=== PATIENT | male | born 1945 | race Asian ===

== ENCOUNTER 2022-10-18 07:55 | Emergency (ER) | payer OTHER ==
[~2022-10-18] VITALS: Ht 170.2 cm; Wt 80.5 kg
[2022-10-18 08:24] VITALS: BP 149/70
[2022-10-18] MEDS ORDERED: CIP03OS RIGHTEYE (08:54)
== END 2022-10-18 09:07 | disposition home or self-care (01) ==
LOC: ER 07:55
DX: S05.01XA Injury of conjunctiva and corneal abrasion without foreign body, right eye, initial encounter (principal); Z79.899 Other long term (current) drug therapy; X58.XXXA Exposure to other specified factors, initial encounter; Y93.89 Activity, other specified; Y92.89 Other specified places as the place of occurrence of the external cause; Y99.8 Other external cause status

== ENCOUNTER 2024-06-19 04:44 | Emergency (ER) | payer MEDICARE, OTHER ==
[~2024-06-19] VITALS: Ht 170.2 cm; Wt 81.5 kg
[~2024-06-19 04:44] MED LIST: CIP03OS RIGHTEYE
[2024-06-19] MEDS: DexAMETHasone SOD PHOS 10MG/1ML VIAL INJ IM ONE (05:06)
[2024-06-19] MEDS: diphenhdrAMINE HCL 50 MG/1 ML VL IM ONE (05:07)
[2024-06-19 06:25] VITALS: BP 139/79; PULSE 62; RESP 16; TEMP 98; O2SAT 97
== END 2024-06-19 05:47 | disposition home or self-care (01) ==
LOC: ER 04:44
DX: T78.40XA Allergy, unspecified, initial encounter (principal); I10 Essential (primary) hypertension; X58.XXXA Exposure to other specified factors, initial encounter
CPT/HCPCS: 96372; 99284; J1100; J1200